=== PATIENT | female | born 1990 ===

== ENCOUNTER 2021-04-21 08:17 | Outpatient (CLI) | payer OTHER | END 2021-04-21 09:54 | disposition home or self-care (01) | LOC: SONOGRAMA 08:17 | PROVIDERS: ATTEND Pathology Anatomic Pathology & Clinical Pathology | DX: D34 Benign neoplasm of thyroid gland (principal); E04.8 Other specified nontoxic goiter ==

== ENCOUNTER 2024-12-22 08:05 | Outpatient (CLI) | payer OTHER | END 2024-12-22 08:07 | disposition home or self-care (01) | LOC: SONOGRAMA 08:05 | PROVIDERS: ATTEND Pathology Anatomic Pathology & Clinical Pathology | DX: D44.0 Neoplasm of uncertain behavior of thyroid gland (principal); E04.1 Nontoxic single thyroid nodule ==